=== PATIENT | female | born 1945 | race Caucasian/White ===

== ENCOUNTER 2022-12-09 13:14 | Emergency (ER) | payer OTHER, MEDICARE, BC ==
[2022-12-09] MEDS ORDERED: fentaNYL 50 mcg/mL 1 mL Vial ONE ×2 (15:01→15:26)
== END 2022-12-09 16:47 | disposition home or self-care (01) ==
LOC: ERS 13:14
DX: S42.291A Other displaced fracture of upper end of right humerus, initial encounter for closed fracture (principal); S43.004A Unspecified dislocation of right shoulder joint, initial encounter; I10 Essential (primary) hypertension; W01.0XXA Fall on same level from slipping, tripping and stumbling without subsequent striking against object, initial encounter; Y93.E1 Activity, personal bathing and showering; Z87.891 Personal history of nicotine dependence
CPT/HCPCS: 23650; 73030; 96374; 99284; J3010